=== PATIENT | male | born 1950 | race Caucasian/White ===

== ENCOUNTER 2019-01-08 19:15 | Outpatient (CLI) | payer MEDICARE ==
--- NOTE | 2019-01-08 19:46 | RAD ---
EXAM: Left knee: 4 views INDICATIONS: Knee pain injury COMPARISON: None. FINDINGS: Joint spaces are maintained. Mild degenerative changes noted. No joint effusion. No fractur e or acute osseous abnormality. IMPRESSION: No acute finding
== END 2019-01-08 19:16 | disposition home or self-care (01) ==
LOC: MADRAD 19:15
PROVIDERS: ATTEND Family Medicine
DX: M25.562 Pain in left knee (principal)

== ENCOUNTER 2019-11-15 08:06 | Outpatient (CLI) | payer MEDICARE ==
--- NOTE | 2019-11-15 08:43 | ULT ---
Renal sonogram HISTORY: Renal insufficiency. FINDINGS: Right kidney is 12.6 cm length and left is 12.1 cm. There is thinning of the cortex of each kidney and suggestion of collecting system duplication. No hydronephrosis or mass evident. Urinary bladder has a normal appearance with minimal postvoid residual. Partially visualized liver is diffusely echogenic. IMPRESSION : No evidence of urinary tract obstruction. Symmetric, diffuse renal cortical thinning, correlating with chronic renal insufficiency. Hepato-steatosis.
== END 2019-11-15 08:07 | disposition home or self-care (01) ==
LOC: MADULT 08:06
PROVIDERS: ATTEND Internal Medicine Nephrology
DX: N18.3 Chronic kidney disease, stage 3 (moderate) (principal); N28.89 Other specified disorders of kidney and ureter; K76.0 Fatty (change of) liver, not elsewhere classified
CPT/HCPCS: 76770

== ENCOUNTER 2020-09-11 09:17 | Outpatient (CLI) | payer MEDICARE ==
[2020-09-11 09:37] LABS: Hemoglobin 11.9 g/dL (14.0-18.0)
[2020-09-11 09:54] LABS: Anion Gap 13 mmol/L (10-20); BUN (Urea Nitrogen) 16 mg/dL (8.4-25.7); Calc. Creatinine Clearance 0 mL/min (70-130); Calcium 8.4 mg/dL (7.8-10.44); Carbon Dioxide 27 mmol/L (23-31); Chloride 106 mmol/L (98-107); Glucose 175 mg/dL (80-115); Potassium 3.6 mmol/L (3.5-5.1); Sodium 142 mmol/L (136-145)
[2020-09-11 17:19] LABS: Creatinine, Urine 119.18 mg/dL (63-166); Protein, Urine Random Quant Less than 10 mg/dL (1-14)
== END 2020-09-11 09:18 | disposition home or self-care (01) ==
LOC: MADLAB 09:17
PROVIDERS: ATTEND Internal Medicine Nephrology
DX: N18.30 Chronic kidney disease, stage 3 unspecified (principal); D63.1 Anemia in chronic kidney disease; R80.9 Proteinuria, unspecified
CPT/HCPCS: 36415; 80048; 82570; 84156; 85014; 85018

== ENCOUNTER 2022-12-25 09:30 | Outpatient (CLI) | payer MEDICARE ==
[2022-12-25 10:00] LABS: #Basophils 0.1 thou/uL (0.0-0.2); #Eosinphils 0.2 thou/uL (0.0-0.7); #Lymphocytes 1.4 thou/uL (1.20-3.40); #Monocytes 0.5 thou/uL (0.11-0.59); #Neutrophils 3.1 thou/uL (1.40-6.50); %Eosinophils 3.3 % (0.0-10.0); %Neutrophils 59.6 % (42.0-75.0); Hemoglobin 14.5 g/dL (14.0-18.0); Mean Corpuscular HGB CONC 33.1 g/dL (32.0-36.0); Mean Corpuscular Hemoglobin 30.9 pg (27.0-31.0); Mean Corpuscular Volume 93.2 fl (78.0-98.0); Mean Platelet Volume 9.6 fL (7.4-10.4); Platelet Count 234 10x3/uL (130-400); Red Blood Cell (RBC) Count 4.69 mill/uL (4.70-6.10); White Blood Cell (WBC) Count 5.2 10x3/uL (4.8-10.8)
[2022-12-25 10:13] LABS: ALT (SGPT) 31 U/L (8-55); AST (SGOT) 22 U/L (5-34); Albumin 4.1 g/dL (3.4-4.8); Alkaline Phosphatase 48 U/L (40-110); Anion Gap 14 mmol/L (10-20); BUN (Urea Nitrogen) 14 mg/dL (8.4-25.7); Bilirubin, Total 2.1 mg/dL (0.2-1.2); Calc. Creatinine Clearance 0 mL/min (70-130); Calcium 9.6 mg/dL (7.8-10.44); Carbon Dioxide 27 mmol/L (23-31); Cardiac Risk 3.9 (Less than 4.5); Chloride 107 mmol/L (98-107); Cholesterol 129 mg/dl (< 200 Desired); Estimated GFR 72; Glucose 169 mg/dL (80-115); HDL Cholesterol 33 mg/dL (>60 Neg Risk); LDL Cholesterol, Calculated 72 mg/dL; Protein, Total 7.1 g/dL (5.8-8.1); Sodium 144 mmol/L (136-145); Triglycerides 118 mg/dL (Less than 150)
== END 2022-12-25 09:31 | disposition home or self-care (01) ==
LOC: MADLAB 09:30
PROVIDERS: ATTEND Internal Medicine
DX: I10 Essential (primary) hypertension (principal); E78.5 Hyperlipidemia, unspecified; E11.9 Type 2 diabetes mellitus without complications
CPT/HCPCS: 80053; 80061; 83036; 85025

== ENCOUNTER 2025-03-24 11:39 | Outpatient (CLI) | payer MEDICARE ==
[2025-03-24 12:07] LABS: Hematocrit 40.0 % (42.0-52.0); Hemoglobin 13.0 g/dL (14.0-18.0)
[2025-03-24 12:20] LABS: Anion Gap 17 mmol/L (10-20); BUN (Urea Nitrogen) 14 mg/dL (8.4-25.7); Calc. Creatinine Clearance 0 mL/min (70-130); Calcium 9.1 mg/dL (7.8-10.44); Carbon Dioxide 25 mmol/L (23-31); Chloride 109 mmol/L (98-107); Glucose 118 mg/dL (83-110); Potassium 3.8 mmol/L (3.5-5.1); Sodium 147 mmol/L (136-145)
[2025-03-24 16:50] LABS: Protein, Urine Random Quant Less than 10 mg/dL (1-14)
== END 2025-03-24 11:40 ==
LOC: MADLAB 11:39
PROVIDERS: ATTEND Internal Medicine Nephrology
DX: N18.30 Chronic kidney disease, stage 3 unspecified (principal); D63.1 Anemia in chronic kidney disease; R80.9 Proteinuria, unspecified
CPT/HCPCS: 36415; 80048; 82570; 84156; 85014; 85018